=== PATIENT | female | born 1990 | race Caucasian/White ===

== ENCOUNTER → 2018-09-13 | Outpatient (CLI) | payer OTHER | LOC: COL.RAD 10:37 | DX: M47.816 Spondylosis without myelopathy or radiculopathy, lumbar region (principal); R31.9 Hematuria, unspecified ==

== ENCOUNTER 2020-10-30 06:29 | Emergency (ER) | payer OTHER ==
[~2020-10-30] VITALS: Ht 165.1 cm; Wt 75.9 kg
[2020-10-30 06:38] VITALS: BP 130/70; TEMP 97.7
[2020-10-30] MEDS ORDERED: ZOLOFT 50MG50 MG PO (06:42)
[2020-10-30] MEDS ORDERED: NORCO 325 MG-51 TAB PO (07:04)
[2020-10-30] MEDS ORDERED: CRUTCHES MC (07:12)
[2020-10-30 07:53] VITALS: PULSE 96
== END 2020-10-30 07:53 | disposition home or self-care (01) ==
LOC: COL.ER 06:29
DX: S93.492A Sprain of other ligament of left ankle, initial encounter (principal); F10.129 Alcohol abuse with intoxication, unspecified; W10.9XXA Fall (on) (from) unspecified stairs and steps, initial encounter
CPT/HCPCS: 31867; L4386